=== PATIENT | male | born 1960 | race Hispanic/Latino ===

== ENCOUNTER 2019-02-05 23:41 | Emergency (ER) | payer BC ==
[~2019-02-05 23:41] MED LIST: IBUP-2482 PO; NIAC50TA4 PO; PRAV10TA39 PO; VENL25TA4 PO
[2019-02-06] MEDS ORDERED: LIDOCAINE 5% TOPICAL PATCH TP ONE (00:30)
[2019-02-06] MEDS ORDERED: KETOROLAC TROMETHAMINE 60 MG/2 ML VIAL ONE (00:30)
[2019-02-06 01:16] LABS: APPEARANCE,URINE Clear (CLEAR); BILIRUBIN,URINE Negative (NEGATIVE); COLOR,URINE Yellow (YELLOW); GLUCOSE, URINE (UA) Negative (NEGATIVE); KETONES,URINE Negative (NEGATIVE); LEUKOCYTE ESTERASE ,URINE Negative (NEGATIVE); NITRATE,URINE Negative (NEGATIVE); OCCULT BLOOD,URINE Negative (NEGATIVE); PROTEIN,URINE Negative (NEGATIVE)
== END 2019-02-06 02:18 | disposition home or self-care (01) ==
LOC: EDH 23:41
DX: M54.5 Low back pain (principal); M62.838 Other muscle spasm; F41.9 Anxiety disorder, unspecified; Z98.890 Other specified postprocedural states
CPT/HCPCS: 72100; 81003; 96372; 99284; J1885

== ENCOUNTER 2023-03-22 05:06 | Emergency (ER) | payer BC ==
[~2023-03-22] VITALS: Ht 188 cm; Wt 138.8 kg
[~2023-03-22 05:06] MED LIST changes: -VENL25TA4 PO; +VENL25TA46 PO
[2023-03-22] MEDS ORDERED: MORPHINE 2 MG SYG IVP ONE (05:30)
[2023-03-22] MEDS ORDERED: ONDANSETRON 4MG INJ IVP ONE (05:30)
[2023-03-22] MEDS ORDERED: 0.9%NACL 1000ML 2,000 ML IV ONE (05:30)
[2023-03-22] MEDS ORDERED: KETOROLAC 15MG/ML VIAL (15MG/ML) IV ONE (05:30)
[2023-03-22 05:36] LABS: BASOPHILS # (AUTO) 0.02 K/uL (0.00-0.20); BASOPHILS % (AUTO) 0.3 % (0.0-5.0); EOSINOPHILS # (AUTO) 0.07 K/uL (0.00-0.70); EOSINOPHILS % (AUTO) 0.9 % (0.0-8.0); HEMATOCRIT 38.3 % (42-54); IMMATURE GRANULOCYTE ABSOLUTE 0.03 K/uL (0-1); LYMPHOCYTES # (AUTO) 0.5 K/uL (1.0-4.8); LYMPHOCYTES % (AUTO) 5.9 % (21.0-51.0); MEAN CORPUSCULAR HEMOGLOBIN 32.2 pg (27.0-33.0); MEAN CORPUSCULAR HGB CONC 32.4 g/dL (32.0-36.0); MEAN CORPUSCULAR VOLUME 99.5 fL (79-99); MONOCYTES # (AUTO) 1.2 K/uL (0.1-1.0); MONOCYTES % (AUTO) 15.8 % (3.0-13.0); NEUTROPHILS # (AUTO) 5.9 K/uL (1.8-7.7); NEUTROPHILS % (AUTO) 76.7 % (40.0-77.0); PLATELET COUNT (AUTO) 278 K/uL (130-400); RED BLOOD CELL COUNT(AUTO) 3.85 MIL/uL (4.50-6.20); RED CELL DISTRIBUTION WIDTH 12.2 % (11.0-15.5); WHITE BLOOD COUNT (AUTO) 7.7 K/uL (4.8-10.8)
[2023-03-22] MEDS ORDERED: MORPHINE 2 MG SYG ONE (05:37)
[2023-03-22] MEDS ORDERED: KETOROLAC 15MG/ML VIAL (15MG/ML) ONE (05:37)
[2023-03-22] MEDS ORDERED: ONDANSETRON 4MG INJ ONE (05:37)
[2023-03-22 05:45] LABS: APPEARANCE,URINE CLEAR (CLEAR); BILIRUBIN,URINE NEGATIVE (NEGATIVE); COLOR,URINE LIGHT-YELLOW (YELLOW); GLUCOSE, URINE (UA) 30 mg/dL (NEGATIVE); KETONES,URINE NEGATIVE (NEGATIVE); LEUKOCYTE ESTERASE ,URINE NEGATIVE Leu/uL (NEGATIVE); NITRATE,URINE NEGATIVE (NEGATIVE); OCCULT BLOOD,URINE MODERATE (NEGATIVE); PH,URINE 5.5 (5.0-8.0); PROTEIN,URINE NEGATIVE (NEGATIVE); UROBILINOGEN,URINE 3 mg/dL (0.2-1.0)
[2023-03-22 05:50] LABS: ALBUMIN 2.9 g/dL (3.5-5.0); BILIRUBIN,TOTAL 0.3 mg/dL (0.2-1.0); CREATININE 0.9 mg/dL (0.5-1.5); POTASSIUM 3.6 mmol/L (3.5-5.1); TOTAL PROTEIN, SERUM 7.7 g/dL (6.0-8.3)
[2023-03-22 05:55] LABS: ADD UA MICROSCOPIC YES
[2023-03-22 05:56] LABS: MUCUS,URINE FEW LPF (None Seen); SQUAMOUS EPITHELIAL CELL,UR RARE /HPF (0-2); WBC,URINE 0-1 /HPF (0-1)
[2023-03-22 08:16] VITALS: BP 137/77; PULSE 71; RESP 18; O2SAT 96
[2023-03-22] MEDS ORDERED: NAPR-1192 PO (08:34)
== END 2023-03-22 08:39 | disposition home or self-care (01) ==
LOC: EDH 05:06
DX: R59.0 Localized enlarged lymph nodes (principal); E78.00 Pure hypercholesterolemia, unspecified; Z85.46 Personal history of malignant neoplasm of prostate; Z90.79 Acquired absence of other genital organ(s)
CPT/HCPCS: 99284; 74176; 96374; 96375; 96361; 80053; 83690; 85025; 81001; 36415; J2270; J2405; J1885

== ENCOUNTER 2023-03-24 01:43 | Emergency (ER) | payer BC ==
[~2023-03-24] VITALS: Ht 188 cm; Wt 139.3 kg
[~2023-03-24 01:43] MED LIST changes: +NAPR-1192 PO
[2023-03-24 02:21] LABS: RAPID GROUP A STREP negative (NEGATIVE)
[2023-03-24 02:26] LABS: SARS-CoV-2, RNA, NAAT NEGATIVE SARS CoV-2 (NEGATIVE)
[2023-03-24] MEDS ORDERED: METOCLOPRAMIDE 10 MG/2 ML VIAL IVP ONE (02:30)
[2023-03-24] MEDS ORDERED: DiphenhydrAMINE HCL 50 MG/ML VIAL IV ONE (02:30)
[2023-03-24] MEDS ORDERED: KETOROLAC 15MG/ML VIAL (15MG/ML) IV ONE (02:30)
[2023-03-24 02:31] LABS: INFLUENZA TYPE A Negative For Type A (NEGATIVE); INFLUENZA TYPE B Negative For Type B (NEGATIVE)
[2023-03-24] MEDS ORDERED: DEXAMETHASONE SOD PHOSPHATE 10MG/ML 1ML VIAL ONE (03:25)
[2023-03-24] MEDS ORDERED: DEXAMETHASONE SOD PHOSPHATE 4 MG/ML 1ML VIAL IV ONE (03:30)
[2023-03-24] MEDS ORDERED: DEXAMETHASONE SOD PHOSPHATE 4 MG/ML 1ML VIAL IVP ONE (03:30)
[2023-03-24] MEDS ORDERED: PRED20TA3 PO (05:10)
[2023-03-24 05:55] VITALS: BP 122/66; PULSE 88; RESP 20; O2SAT 98
== END 2023-03-24 05:58 | disposition home or self-care (01) ==
LOC: EDH 01:43
DX: R51.9 Headache, unspecified (principal); Z85.46 Personal history of malignant neoplasm of prostate; Z90.79 Acquired absence of other genital organ(s); Z20.822 Contact with and (suspected) exposure to COVID-19
CPT/HCPCS: 99284; 96374; 96375; 70450; 87635; 87880; 87804 ×2; C9803; J1200; J1100; J2765; J1885

== ENCOUNTER 2023-06-02 22:17 | Emergency (ER) | payer BC ==
[~2023-06-02] VITALS: Ht 188 cm; Wt 140.2 kg
[~2023-06-02 22:17] MED LIST changes: +PRED20TA3 PO
[2023-06-03 01:26] LABS: BASOPHILS # (AUTO) 0.05 K/uL (0.00-0.20); BASOPHILS % (AUTO) 0.9 % (0.0-5.0); EOSINOPHILS # (AUTO) 0.53 K/uL (0.00-0.70); EOSINOPHILS % (AUTO) 9.3 % (0.0-8.0); HEMATOCRIT 39.4 % (42-54); IMMATURE GRANULOCYTE ABSOLUTE 0.04 K/uL (0-1); LYMPHOCYTES # (AUTO) 0.8 K/uL (1.0-4.8); LYMPHOCYTES % (AUTO) 14.3 % (21.0-51.0); MEAN CORPUSCULAR HEMOGLOBIN 31.5 pg (27.0-33.0); MEAN CORPUSCULAR HGB CONC 32.7 g/dL (32.0-36.0); MEAN CORPUSCULAR VOLUME 96.3 fL (79-99); MONOCYTES # (AUTO) 0.9 K/uL (0.1-1.0); MONOCYTES % (AUTO) 15.6 % (3.0-13.0); NEUTROPHILS # (AUTO) 3.4 K/uL (1.8-7.7); NEUTROPHILS % (AUTO) 59.2 % (40.0-77.0); PLATELET COUNT (AUTO) 268 K/uL (130-400); RED BLOOD CELL COUNT(AUTO) 4.09 MIL/uL (4.50-6.20); RED CELL DISTRIBUTION WIDTH 14.1 % (11.0-15.5); WHITE BLOOD COUNT (AUTO) 5.7 K/uL (4.8-10.8)
[2023-06-03 01:35] LABS: CREATININE 0.9 mg/dL (0.5-1.5); POTASSIUM 3.7 mmol/L (3.5-5.1)
[2023-06-03 01:40] LABS: ALBUMIN 3.8 g/dL (3.5-5.0); BILIRUBIN,TOTAL 0.4 mg/dL (0.2-1.0); TOTAL PROTEIN, SERUM 8.3 g/dL (6.0-8.3)
[2023-06-03] MEDS ORDERED: 0.9%NACL 1000ML 1,000 ML IV ONE (02:30)
[2023-06-03 04:28] VITALS: BP 145/74; PULSE 78; RESP 18; O2SAT 99
[2023-06-03] MEDS ORDERED: SULFAMETHOX-TMP DS 800/160 TAB ONE (04:38)
[2023-06-03] MEDS ORDERED: CEFTRIAXONE 2GM VIAL ONE (04:38)
[2023-06-03] MEDS ORDERED: SULF1TAB42 PO (04:51)
[2023-06-03] MEDS ORDERED: CEPH500B PO (04:51)
[2023-06-03] MEDS ORDERED: SULFAMETHOX-TMP DS 800/160 TAB PO SCH (05:00)
[2023-06-03] MEDS ORDERED: CEFTRIAXONE 2GM VIAL IVPB ONE (05:00)
== END 2023-06-03 05:25 | disposition home or self-care (01) ==
LOC: EDH 22:17
DX: L03.116 Cellulitis of left lower limb (principal); Z79.899 Other long term (current) drug therapy; Z98.890 Other specified postprocedural states
CPT/HCPCS: 99284; 82550; 80053; 83880; 85025; 85378; 87040 ×2; 83605; 36415; 96374; 93971; J0696

== ENCOUNTER → 2024-04-11 | Outpatient (CLI) | payer BC ==
[~2024-04-11] MED LIST changes: +CEPH500B PO; +SULF1TAB42 PO; +VENL25TA33 PO; -VENL25TA46 PO
[2024-04-11 16:59] LABS: CREATININE 1.1 mg/dL (0.5-1.3); POTASSIUM 4.8 mmol/L (3.5-5.1)
== END | disposition home or self-care (01) ==
LOC: LAB 13:15
PROVIDERS: ATTEND Internal Medicine Cardiovascular Disease
DX: Z01.812 Encounter for preprocedural laboratory examination (principal); I48.91 Unspecified atrial fibrillation; R06.02 Shortness of breath
CPT/HCPCS: 36415; 80048; 83880

== ENCOUNTER 2024-05-02 07:53 | Day surgery (SDC) | payer BC ==
[2024-05-01 12:12] LABS: BASOPHILS # (AUTO) 0.03 K/uL (0.00-0.20); BASOPHILS % (AUTO) 0.7 % (0.0-5.0); EOSINOPHILS # (AUTO) 0.13 K/uL (0.00-0.70); HEMATOCRIT 44.3 % (42-54); IMMATURE GRANULOCYTE ABSOLUTE 0.02 K/uL (0-1); LYMPHOCYTES % (AUTO) 21.8 % (21.0-51.0); MEAN CORPUSCULAR HEMOGLOBIN 32.7 pg (27.0-33.0); MEAN CORPUSCULAR HGB CONC 32.5 g/dL (32.0-36.0); MEAN CORPUSCULAR VOLUME 100.7 fL (79-99); MONOCYTES # (AUTO) 0.7 K/uL (0.1-1.0); MONOCYTES % (AUTO) 15.4 % (3.0-13.0); NEUTROPHILS # (AUTO) 2.6 K/uL (1.8-7.7); NEUTROPHILS % (AUTO) 58.6 % (40.0-77.0); PLATELET COUNT (AUTO) 222 K/uL (130-400); RED CELL DISTRIBUTION WIDTH 12.1 % (11.0-15.5); WHITE BLOOD COUNT (AUTO) 4.4 K/uL (4.8-10.8)
[2024-05-01 12:24] LABS: INR 1.02 (0.85-1.15)
[2024-05-01 12:26] LABS: PARTIAL THROMBOPLASTIN TIME 28.9 SEC (26.3-35.5)
[2024-05-01 12:34] VITALS: BP 104/76; PULSE 78; RESP 18; TEMP 97
[2024-05-01 12:34] LABS: POTASSIUM 4.1 mmol/L (3.5-5.1)
[~2024-05-02] VITALS: Ht 188 cm; Wt 151.6 kg
[~2024-05-02 07:53] MED LIST changes: -CEPH500B PO; -IBUP-2482 PO; +METO25TA6 PO; -NAPR-1192 PO; -NIAC50TA4 PO; -PRAV10TA39 PO; -PRED20TA3 PO; -SULF1TAB42 PO; +VENL225T3 PO; -VENL25TA33 PO; +eliquis PO; +rosuvastatin PO
[2024-05-02] MEDS: LIDOCAINE HCL 2% VISCOUS 15 ML UDCUP PO ONE (08:00)
[2024-05-02 08:05] VITALS: BP 135/83; PULSE 89; RESP 15; TEMP 97.2
--- NOTE | 2024-05-02 10:02 | EKG ---
[facility] Test Date: 2024-05-02 Test Time: 08:54:12 Pat Name: VAMSI BUTT Department: [facility] Room: [facility] Gender: M Voip Technician: [id number] : 1960 Requested By: LILIANE AGUILAR Order Number: [id number] Reading MD: Jp Ramirez Measurements Intervals [place] Rate: 89 P: 0 DC: 0 QRS: 6 QRSD: 96 T: 11 QT: 368 QTc: 448 Interpretive Statements Atrial fibrillation Compared to ECG 11/24/2014 03:59:20 Sinus rhythm no longer present Electronically Signed On 05-02-2024 11:09:37 ALARM ADJUSTER by Jp Ramirez Please click the below link to view image of tracing.
--- NOTE | 2024-05-02 10:12 | EKG ---
[facility] Test Date: 2024-05-02 Test Time: 11:09:07 Pat Name: VAMSI BUTT Department: [facility] Room: [facility] 15 Gender: M Nutrition Coordinator: [id number] : 1960 Requested By: LILIANE AGUILAR Order Number: [id number] Reading MD: Jp Ramirez Measurements Intervals [place] Rate: 65 P: 40 UT: 184 QRS: -1 QRSD: 100 T: 30 QT: 406 QTc: 422 Interpretive Statements Sinus rhythm with premature atrial complexes Compared to ECG 05/02/2024 08:54:12 Atrial premature complex(es) now present Atrial fibrillation no longer present Electronically Signed On 05-02-2024 11:10:21 INSURANCE EXAMINER by Jp Ramirez Please click the below link to view image of tracing.
--- NOTE | 2024-05-02 10:14 | PRN ---
Procedure Note INDICATION FOR PROCEDURE: [] Atrial fibrillation Hypercoagulable state PROCEDURE: [] Conscious sedation Transesophageal echocardiogram Direct current cardioversion x1 at 200 joules synchronized electricity DATE OF PROCEDURE: May 02, 2024 WIRE FENCE ERECTOR: Rogerio Figueroa MD, F.A.C.C. PROCEDURE NOTE: [] Patient was brought to day patient and preliminary EKG confirmed atrial fibrillation still present. Patient was given a total of 6 mg of IV Versed and 150 mcg of fentanyl for conscious sedation and transesophageal echocardiogram probe was passed and images were obtained revealing patient to have no evidence of left atrial appendage thrombus or clot. It was felt synchronized direct current cardioversion was appropriate and device was set to 200 joules which was administered x1 with return of normal sinus rhythm. FINDINGS: [] Please see separate JUAN C report Successful direct current cardioversion x1 with return to normal sinus rhythm IMPRESSION: [] Paroxysmal atrial fibrillation Successful direct current cardioversion PLAN: [] Continue anticoagulation for at least 4 weeks Outpatient 14 day monitor to assess for recurrent of AFib Follow up in office in 4 weeks ROGERIO FIGUEROA MD May 02, 2024 10:13
[2024-05-02 10:15] VITALS: BP 113/66; PULSE 64; RESP 15
[2024-05-02] MEDS: 0.9%NACL 1000ML 1,000 ML IV SCH (10:22)
[2024-05-02] MEDS: MIDAZOLAM HCL 1 MG/ML 2ML VIAL IVP ONE (10:23)
[2024-05-02] MEDS: FENTanyl CITRate PF 50 MCG/1 ML 2ML VIAL IVP ONE (10:24)
[2024-05-02 10:25] VITALS: BP 109/70; PULSE 65; RESP 14; TEMP 97
[2024-05-02 10:35] VITALS: BP 107/66; PULSE 64; RESP 15
[2024-05-02 10:50] VITALS: BP 105/65; PULSE 65; RESP 15
--- NOTE | 2024-05-02 10:50 | NUR ---
PT AND FRIEND GIVEN VERBAL AND WRITTEN DISCHARGE INSTRUCTIONS. IV REMOVED SITE ASYMPTOMATIC.
--- NOTE | 2024-05-03 10:18 | HMCSR ---
APPROVED REPORT EXAM: Transesophageal echocardiogram with color flow Doppler. INDICATION ICD: I48.0 Chronic AF PROCEDURE After obtaining informed consent, patient underwent transesophageal echo in the daypatient 15. 15 mL 2% Viscous Lidocaine was given as a topical anesthetic prior to the administration of the consc ious sedation. Type of Sedation: Conscious Sedation Sedation was administered by Please refer to medication administration record. . Sedation was achieved with Please refer to medication administration record. intravenously. Transesophageal probe was inserted and advanced into esophagus without difficulty by Rogerio Figueroa MD . JUAN C was performed and images were obtained, probe was removed without complications. Prior to cardioversion, of Please refer to medication administration record. was administered. Synchronized Cardioversion attempted: Successful Synchronized Cardioversion acheived with 200 Joules after 1 attempt(s). Rhythm following Synchronized Cardioversion: Sinus Rhythm Throughout the procedure, the blood pressure, pulse oximetry, cardiac rhythm, and rate were monitored . The patient tolerated the procedure without adverse effects. Recovery from conscious sedation was une ventful and vital signs were stable. Left Ventricle The left ventricle is borderline enlarged. Regional wall motion abnormalities cannot be excluded. The re is normal left ventricular wall thickness. LVEF is 40%. Right Ventricle The right ventricle is normal size. The right ventricular systolic function is normal. Atria No left atrial appendage thrombus noted. The left atrium is moderately dilated. The right atrium is m ildly dilated. Aortic Valve The aortic valve is normal in structure and function. Trace of aortic regurgitation is present. There is no aortic valvular stenosis. Mitral Valve Mitral valve leaflets open well. Mitral regurgitation is mild to moderate with two centric jets. Ther e is no mitral valve stenosis. Tricuspid Valve The tricuspid valve is normal in structure and function. There is mild tricuspid valve regurgitation noted. Pulmonic Valve The pulmonary valve is normal in structure and function. There is trace of pulmonic valvular regurgit ation. Great Vessels The aortic root is normal in size. The ascending aorta appears normal in size.The descending aorta ap pears normal in size. Pericardium The pericardium appears normal. Conclusion There is normal left ventricular wall thickness. LVEF is 40%. No left atrial appendage thrombus noted. The ascending aorta appears normal in size.The descending aorta appears normal in size.
== END 2024-05-02 11:05 | disposition home or self-care (01) ==
LOC: DAH 07:53 → EDSTATUS 05-03 11:00
PROVIDERS: ATTEND Internal Medicine Cardiovascular Disease
DX: I48.0 Paroxysmal atrial fibrillation (principal); I48.20 Chronic atrial fibrillation, unspecified; I08.1 Rheumatic disorders of both mitral and tricuspid valves; E78.5 Hyperlipidemia, unspecified; I49.1 Atrial premature depolarization; F41.9 Anxiety disorder, unspecified; R53.83 Other fatigue; R06.02 Shortness of breath; E66.01 Morbid (severe) obesity due to excess calories; Z68.41 Body mass index [BMI] 40.0-44.9, adult; Z79.01 Long term (current) use of anticoagulants; Z98.890 Other specified postprocedural states; Z79.899 Other long term (current) drug therapy
CPT/HCPCS: 80048; 85025; 85610; 85730; 36415; 92960; 93325; 93312; 93005 ×2; J3010; J7030; J2250; A4615; A4215; A4223 ×3; A4657; A7002; A4222; A4221; A4663; A4216; A4606; 99152; G0500

== ENCOUNTER → 2024-06-13 | Outpatient (CLI) | payer BC ==
[~2024-06-13] MED LIST changes: +AMIO200T68 PO; +APIX5TAB PO; +IOHEXOL-350 75 ML VIAL IV ONE; +ROSU20TA98 PO; -eliquis PO; -rosuvastatin PO
--- NOTE | 2024-06-13 12:09 | HMCIMG ---
CT CARDIAC ANGIO W/CONT. CCTA REASON: ISCHEMIC CARDIOMYOPATHY COMPARISON: None TECHNIQUE: Images are obtained through the heart in the axial plane before and during bolus IV contrast infusion, 100 cc Omnipaque 350. 2-D and 3-D multiplanar reconstruction images were then performed. The injection had to be repeated once due to motion artifact on the first sequence, total contrast volume was 200 cc. FINDINGS: This dictation is for the noncardiac findings only. Cardiac and coronary artery findings are reported separately. Visualized portions of the lungs are clear. There is normal-appearing pulmonary interstitium. There is no hilar or mediastinal lymphadenopathy. Chest wall structures appear unremarkable. IMPRESSION: 1. Unremarkable noncardiac portions of CT cardiac angiography.
--- NOTE | 2024-06-13 17:52 | CARDIOLOGY ---
RAD REPORT: [facility] CT ANGIO RADIOLOGY REPORT: CORONARY CT ANGIOGRAPHY DATE: Jun 13, 2024 QUALITY: Excellent CLINICAL HISTORY AND INDICATION: [ ischemic CM ] TECHNIQUE: After obtaining a preliminary remelt sugar boiler image, contrast imaging performed on an Aquillon [id number] scanner. A dedicated, limited window, coronary imaging protocol was used, with single breath-hold, retrospective ECG gating, and automated arrhythmia rejection. 100 cc of low osmolar contrast agent: Omnipaque 350 was delivered via a 18-gauge IV catheter in the right antecubital fossa, using a power injector and followed by 60 cc of normal saline bolus as a chaser. Collimated images were reformatted at 0.5 mm intervals, and sent to an offline independent workstation for interpretation, using 3D anatomic reconstructions: Curved multiplanar reconstructions, maximum intensity projections, and multiplanar imaging. No metoprolol was administered prior to scanning due to low baseline heart rate. No SL nitroglycerin was given. CORONARY ARTERY DESCRIPTIONS: The coronary arteries arise in normal position. Left main coronary artery: Normal caliber vessel that bifurcates into the LAD and LCx. No stenosis. Left anterior descending coronary artery: Normal caliber vessel and gives rise to diagonal and septal branches. No stenosis. Left circumflex coronary artery: Normal caliber, nondominant and gives rise to a large OM branch. No stenosis. Right coronary artery: Large, dominant vessel giving rise to the PL and PDA branches. No stenosis. CAD-RADs: 0, absence of CAD. Thoracic Aorta: Normal diameter. Birgit Becerra MD Cardiovascular Disease [facility] BIRGIT BECERRA MD Jun 13, 2024 17:52
== END | disposition home or self-care (01) ==
LOC: RAH 08:31
PROVIDERS: ATTEND Internal Medicine Cardiovascular Disease
DX: I25.5 Ischemic cardiomyopathy (principal); I48.0 Paroxysmal atrial fibrillation
CPT/HCPCS: 75574; Q9967

== ENCOUNTER → 2024-08-09 | Outpatient (CLI) | payer BC ==
[~2024-08-09] MED LIST changes: -IOHEXOL-350 75 ML VIAL IV ONE
--- NOTE | 2024-08-14 16:57 | HMCSR ---
APPROVED REPORT EXAM: Two-dimensional and M-mode echocardiogram with Doppler and color Doppler. INDICATION ICD: I48.9 Unspecified Atrial fibrillation I42.0 Dilated Cardiomyopathy 2D Dimensions RVDd4.6 cmLVEF(%)24.8 (>50%)LVED Vol(simp.)189.0 mL IVSd1.2 (0.7-1.1cm)FS(%)12 %LVES Vol(simp.)133.0 mL LVDd6.2 (3.8-5.6cm)Ao Root(2D)4.0 (2.0-3.7cm)LVEF(%, simp.)30 % PWd1.0 (0.7-1.1cm)LVOT diam2.6 (1.8-2.4cm)LA ESV INDEX (BP)35.76 mL/m2 LVDs5.5 (2.5-4.0cm)IVC diam1.5 cm Aortic Valve AoV Vmax1.1 m/Osiel Peak GR4.5 mmHgLVOT Vmax0.5 m/s AoV VTI0.2 mAo Mean GR3.0 mmHgLVOT VTI0.10 m DORYS (VMAX)2.8 cm2Al P1/2T761 msAVA (VTI) 2.8 cm2 Mitral Valve MV E Vmax65.3 cm/s MR Max PG67 mmHg Pulmonary Valve PV Vmax0.7 m/sPV VTI0.13 mPV Mean GR1 mmHg PV Peak GR2.2 mmHgPI End Yanira. Enoc 1.2 cm/s Tricuspid Valve TR Vmax2.2 m/sRAP (EST) 3 gfDsBCQS17.6 mmHg TR Peak GR18.6 mmHg Left Ventricle The left ventricle is moderately dilated. There is mild left ventricular hypertrophy. LVEF is 25-30%. The LV diastolic function was unable to be assessed due to atrial arrhythmia. Right Ventricle The right ventricle is moderately dilated. Right ventricular systolic function is moderately reduced. Atria The left atrium is mildly dilated. The right atrium is mildly dilated. Aortic Valve Aortic valve is trileaflet. Aortic valve leaflets are sclerotic but open well. Mild to moderate aorti c regurgitation. There is no aortic valvular stenosis. Mitral Valve Mitral valve leaflets are mildly sclerotic but open well. Mitral regurgitation is mild to moderate. T here is no mitral valve stenosis. Tricuspid Valve The tricuspid valve leaflets appear normal. There is trace to mild tricuspid regurgitation. Pulmonic Valve Pulmonic valve is not well visualized. There is mild valvular regurgitation. Great Vessels Aortic root is mildly dilated, 4 cm. The IVC is normal in size and collapses >50% with inspiration. Pericardium No pericardial effusion. Conclusion The left ventricle is moderately dilated. There is mild left ventricular hypertrophy. LVEF is 25-30%. The LV diastolic function was unable to be assessed due to atrial arrhythmia. The right ventricle is moderately dilated. Right ventricular systolic function is moderately reduced. The left atrium is mildly dilated. The right atrium is mildly dilated. Mild to moderate aortic regurgitation. Mitral regurgitation is mild to moderate. There is trace to mild tricuspid regurgitation. Aortic root is mildly dilated, 4 cm. No pericardial effusion.
== END | disposition home or self-care (01) ==
LOC: SHCH 11:14
PROVIDERS: ATTEND Internal Medicine Cardiovascular Disease
DX: I08.8 Other rheumatic multiple valve diseases (principal); I42.0 Dilated cardiomyopathy; I48.19 Other persistent atrial fibrillation
CPT/HCPCS: 93306

== ENCOUNTER 2024-09-05 07:19 | Day surgery (SDC) | payer BC ==
[2024-09-03 11:11] VITALS: BP 140/86; PULSE 80; RESP 18; TEMP 97.6
[2024-09-03 11:16] LABS: BASOPHILS # (AUTO) 0.02 K/uL (0.00-0.20); BASOPHILS % (AUTO) 0.4 % (0.0-5.0); EOSINOPHILS # (AUTO) 0.04 K/uL (0.00-0.70); EOSINOPHILS % (AUTO) 0.8 % (0.0-8.0); HEMATOCRIT 45.1 % (42-54); IMMATURE GRANULOCYTE ABSOLUTE 0.01 K/uL (0-1); LYMPHOCYTES % (AUTO) 19.2 % (21.0-51.0); MEAN CORPUSCULAR HEMOGLOBIN 33.2 pg (27.0-33.0); MEAN CORPUSCULAR HGB CONC 32.8 g/dL (32.0-36.0); MEAN CORPUSCULAR VOLUME 101.1 fL (79-99); MONOCYTES # (AUTO) 0.8 K/uL (0.1-1.0); MONOCYTES % (AUTO) 15.2 % (3.0-13.0); NEUTROPHILS # (AUTO) 3.2 K/uL (1.8-7.7); NEUTROPHILS % (AUTO) 64.2 % (40.0-77.0); PLATELET COUNT (AUTO) 215 K/uL (130-400); RED BLOOD CELL COUNT(AUTO) 4.46 MIL/uL (4.50-6.20); RED CELL DISTRIBUTION WIDTH 12.2 % (11.0-15.5)
[2024-09-03 11:26] LABS: CREATININE 1.3 mg/dL (0.5-1.3); POTASSIUM 4.9 mmol/L (3.5-5.1)
[2024-09-05] VITALS (8 sets, daily range): BP systolic 104–142; BP diastolic 57–80; PULSE 56–69; RESP 14–18; TEMP 97–97.2
[~2024-09-05] VITALS: Ht 188 cm; Wt 151.0 kg
[~2024-09-05 07:19] MED LIST changes: +METO-391 PO; -METO25TA6 PO; +SACU1TAB PO
--- NOTE | 2024-09-05 08:37 | EKG ---
[facility] Test Date: 2024-09-05 Test Time: 07:29:47 Pat Name: VAMSI BUTT Department: [facility] Room: [facility] 13 Gender: M Finishing Room Supervisor: [id number] : 1960 Requested By: MELLY FITZPATRICK Order Number: [id number] Reading MD: Jp Ramirez Measurements Intervals [place] Rate: 92 P: 0 FL: 0 QRS: -1 QRSD: 110 T: -5 QT: 388 QTc: 480 Interpretive Statements Atrial fibrillation Inferior infarct, age indeterminate Compared to ECG 06/07/2024 11:09:53 Myocardial infarct finding now present Sinus bradycardia no longer present Electronically Signed On 09-05-2024 14:04:01 CDT by Jp Ramirez Please click the below link to view image of tracing.
[2024-09-05] MEDS: 0.9%NACL 1000ML 1,000 ML IV SCH (08:58)
[2024-09-05] MEDS ORDERED: proPOFol 10 MG/ML 20ML VIAL IV ONE (09:56)
--- NOTE | 2024-09-05 10:16 | NUR ---
PT SYNCHRONIZE CARDIOVERTED BY DR. FITZPATRICK 200 JOULES PT TOLERATED WELL NAD VSS
--- NOTE | 2024-09-05 10:19 | NUR ---
PT AWAKE SPEAKING WITH STAFF AND DR. FITZPATRICK. JOSLYN LONGOS
--- NOTE | 2024-09-05 13:51 | EKG ---
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
--- NOTE | 2024-09-06 11:26 | PRN ---
Procedure Note Date of procedure: 09/05/24 Diagnosis: Persistent atrial fibrillation Procedure: Cardioversion Physician: Dom Fitzpatrick MD The patient was brought to the day patient area in a fasting state. Anesthesia was provided by the anesthesia service. Cardioversion was performed with a synchronized shock at 200 joules resulting in sinus rhythm. The patient tolerated the procedure well. Final diagnosis: Persistent atrial fibrillation, status post successful cardiove rsion Disposition: The patient will be discharged later today and will follow up with me in the office in approximately two weeks. DOM FITZPATRICK MD Sep 06, 2024 11:26
== END 2024-09-05 11:30 | disposition home or self-care (01) ==
LOC: DAH 07:19
PROVIDERS: ATTEND Internal Medicine Cardiovascular Disease
DX: I48.19 Other persistent atrial fibrillation (principal); F41.9 Anxiety disorder, unspecified; E66.9 Obesity, unspecified; E78.5 Hyperlipidemia, unspecified; I42.0 Dilated cardiomyopathy; Z68.41 Body mass index [BMI] 40.0-44.9, adult; Z79.01 Long term (current) use of anticoagulants; Z79.899 Other long term (current) drug therapy
CPT/HCPCS: 80048; 85025; 36415; 92960; 93005 ×2; J7030; J2704; A4620; A4215; A4222; A4221; A4663; A4216; A4606; A4223 ×3; J3490

== ENCOUNTER → 2024-09-11 | Outpatient (CLI) | payer BC ==
[2024-09-11 16:44] LABS: CREATININE 1.7 mg/dL (0.5-1.3); POTASSIUM 4.6 mmol/L (3.5-5.1)
== END | disposition home or self-care (01) ==
LOC: LAB 14:24
PROVIDERS: ATTEND Physician Assistant
DX: I48.19 Other persistent atrial fibrillation (principal); I42.0 Dilated cardiomyopathy
CPT/HCPCS: 36415; 80048; 83880

== ENCOUNTER → 2024-09-14 | Outpatient (CLI) | payer BC ==
[2024-09-14 12:16] LABS: CREATININE 1.1 mg/dL (0.5-1.3); POTASSIUM 4.9 mmol/L (3.5-5.1)
== END | disposition home or self-care (01) ==
LOC: LAB 09:56
PROVIDERS: ATTEND Internal Medicine Cardiovascular Disease
DX: N17.9 Acute kidney failure, unspecified (principal)
CPT/HCPCS: 36415; 80048

== ENCOUNTER 2025-03-21 05:56 | Day surgery (SDC) | payer BC ==
[2025-03-18 09:52] LABS: IMMATURE GRANULOCYTE ABSOLUTE 0.02 K/uL (0-1); NUCLEATED RED BLOOD CELLS 0.0 % (0.0-0.19); PLATELET COUNT (AUTO) 227 K/uL (130-400); RED BLOOD CELL COUNT(AUTO) 4.51 MIL/uL (4.50-6.20); RED CELL DISTRIBUTION WIDTH 12.1 % (11.0-15.5); WHITE BLOOD COUNT (AUTO) 5.7 K/uL (4.8-10.8)
[2025-03-18 10:00] LABS: INR 1.07 (0.85-1.15)
[2025-03-18 10:05] VITALS: BP 121/78; PULSE 72; RESP 15; TEMP 97
--- NOTE | 2025-03-18 10:09 | EKG ---
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
[2025-03-18 10:23] LABS: CREATININE 1.4 mg/dL (0.5-1.3); GLOMERULAR FILTR. RATE CALC 57.0 mL/min (>90); GLUCOSE,RANDOM 102.0 mg/dL (70-105); SODIUM SERUM 141.0 mmol/L (136-145); UREA NITROGEN, BLOOD 27.0 mg/dL (7-18)
[2025-03-21] VITALS (17 sets, daily range): BP systolic 100–122; BP diastolic 52–70; PULSE 57–70; RESP 15–18; TEMP 97.1–98.1
[~2025-03-21] VITALS: Ht 188 cm; Wt 146.9 kg
[~2025-03-21 05:56] MED LIST changes: -AMIO200T68 PO; +AMIO200T73 PO; -SACU1TAB PO
[2025-03-21] MEDS ORDERED: 0.9%NACL 1000ML 1,000 ML IV ONE (06:15)
[2025-03-21] MEDS ORDERED: MIDAZOLAM HCL 1 MG/ML 2ML VIAL ONE (06:54)
[2025-03-21] MEDS ORDERED: LIDOCAINE HCL 400MG/20ML VIAL ONE (07:17)
[2025-03-21] MEDS ORDERED: HEParin-NS 1,000 UNIT/500 ML 1,000 ML IV ONE (07:17)
[2025-03-21] MEDS ORDERED: SODIUM BICARB 50MEQ 50ML VIAL 50 ML ONE (07:17)
[2025-03-21] MEDS ORDERED: SUGAMMADEX SODIUM 200 MG/2 ML VIAL IV ONE (11:06)
[2025-03-21] MEDS ORDERED: PANT40TA55 PO (11:36)
[2025-03-21] MEDS ORDERED: SUCR1TAB2 PO (11:36)
[2025-03-21] MEDS ORDERED: SUCRALFATE 1 GM/10 ML PO ONE (13:00)
--- NOTE | 2025-03-21 14:05 | NUR ---
PT AND SISTER GIVEN VERBAL AND WRITTEN DISCHARGE INSTRUCTIONS IV REMOVED SITE ASYMPTOMATIC. RIGHT GROIN SOFT ASYMPTOMATIC. PT TAKEN OUT VIA WHEELCHAIR SISTER DRIVING.
== END 2025-03-21 14:12 | disposition home or self-care (01) ==
LOC: DAH 05:56
PROVIDERS: ATTEND Internal Medicine Cardiovascular Disease
DX: I48.19 Other persistent atrial fibrillation (principal); I42.0 Dilated cardiomyopathy; E78.5 Hyperlipidemia, unspecified; F41.9 Anxiety disorder, unspecified; Z79.890 Hormone replacement therapy; Z79.899 Other long term (current) drug therapy
CPT/HCPCS: 80048 ×2; 85025 ×2; 85610; 85730; 36415 ×2; 93005; 93656; 93657 ×2; 85347 ×5; 99283; C1894 ×3; C1732 ×3; A4649 ×2; C1760 ×3; C1766; J3010 ×3; J3490 ×4; J7030; J2720; J1644 ×5; J2250; J2704; J2405 ×2; J2371; A4215; A4222; A4221; A4663; A4216; A4606; A4223 ×3; 99282

== ENCOUNTER 2025-03-21 14:57 | Emergency (ER) | payer BC ==
[~2025-03-21] VITALS: Ht 188 cm; Wt 140.6 kg
[~2025-03-21 14:57] MED LIST changes: +PANT40TA55 PO; +SUCR1TAB2 PO
--- NOTE | 2025-03-21 15:08 | ERN ---
ED Note History of Present Illness Stated Complaint: OTHER Chief Complaint: Other Problems Time Seen by MD: 15:04 Dictation: PATIENT IS A 64-YEAR-OLD MALE COMING IN WITH BLEEDING FROM HIS RIGHT INGUINAL HEART CATHETERIZATION SITE. HE STATES HE HAD A ABLATION TODAY BY FOR ATRIAL FIBRILLATION. 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 HE SAID WHEN HE GOT OUT OF THE TRUCK HE FELT BLOOD COME DOWN HIS LEG. NO BLEEDING CURRENTLY AT THIS TIME. Allergies: Coded Allergies: No Known Allergies (Verified Allergy, Unknown, 10/01/14) No Known Drug Allergies (Unverified Allergy, Unknown, 02/06/19) Home Meds Active Scripts Sucralfate (Sucralfate) 1 Gram Tablet, 1 TAB PO QID, #60 TAB 0 Refills MUST DISSOLVE WATER DO NOT CRUSH Prov:MELLY FITZPATRICK MD 03/21/25 Pantoprazole Sodium (Protonix) 40 Mg Ectab, 1 TAB PO DAILY, #15 TAB 0 Refills Prov:MELLY FITZPATRICK MD 03/21/25 Reported Medications Metoprolol Succinate (Metoprolol Succinate) 50 Mg Tab.er.24h, 50 MG PO HS, TAB 09/03/24 Rosuvastatin Calcium (Rosuvastatin Calcium) 20 Mg Tablet, 20 MG PO HS, TAB 06/05/24 Venlafaxine HCl (Venlafaxine HCl ER) 225 Mg Tab.er.24, 225 MG PO HS 06/05/24 Apixaban (Eliquis) 5 Mg Tablet, 5 MG PO BID, TAB 06/05/24 Discontinued Reported Medications Amiodarone HCl (Amiodarone HCl) 200 Mg Tablet, 200 MG PO PM, TAB 06/05/24 Sacubitril/Valsartan (Entresto 24 mg-26 mg Tablet) 24 Mg-26 Mg Tablet, 1 EACH PO BID, TAB 09/03/24 Past Medical History Past Medical History: A-Fib, Cancer, Other Additional Past Medical Hx: HX OF PROSTATE CA Surgical History: Other Surgical History Other: PROSTATE SX; LEFT SHOULDER SX, BILAT KNEE SX Family History: HTN Social History: Negative, Lives with family RN Note Reviewed/Agreed w/PFSH: Yes Review of System Dictation CONSTITUTIONAL: NEGATIVE EXCEPT FOR HPI HEAD/FACE: NEGATIVE EXCEPT FOR HPI EENT: NEGATIVE EXCEPT FOR HPI RESPIRATORY: NEGATIVE EXCEPT FOR HPI GASTROINTESTINAL/ABDOMINAL: NEGATIVE EXCEPT FOR HPI GENITOURINARY: NEGATIVE EXCEPT FOR HPI BLEEDING FROM RIGHT INGUINAL SITE MUSCULOSKELETAL: NEGATIVE EXCEPT FOR HPI INTEGUMENTARY: NEGATIVE EXCEPT FOR HPI NEUROLOGICAL/PSYCH: NEGATIVE EXCEPT FOR HPI HEMATOLOGIC/LYMPHATIC: NEGATIVE EXCEPT FOR HPI ALL SYSTEMS NEGATIVE, EXCEPT NOTED ABOVE. 13 POINT REVIEW OF SYSTEMS ASSESSED AND ALL NEGATIVE EXCEPT FOR ABOVE. Initial Vital Sign VS Vital Signs Date Time Temp Pulse Resp B/P (MAP) Pulse Ox O2 Delivery O2 Flow Rate FiO2 03/21/25 14:58 65 18 109/70 97 Room Air 0 03/21/25 15:15 98.6 21 Physical Exam Dictation VITAL SIGNS REVIEWED GENERAL APPEARANCE: ALERT, ORIENTED X 3, NO ACUTE DISTRESS, WELL DEVELOPED, NOURISHED. HEAD AND FACE: NON-TRAUMATIC. EYES: PERRL, PINK CONJUNCTIVAS, EYELID NO TRAUMA, ANTERIOR CHAMBER WITH ARCUS SENILIS. EARS: PINNAS INTACT AND NO SIGNS OF TRAUMA OR ERYTHEMA EAR CANALS CLEAR AND NO DISCHARGE TM NO ERYTHEMA NOSE: NO DISCHARGE, NO BLEEDING. OROPHARYNX: MOUTH NORMAL, TONGUE PINK, PHARYNX CLEAR,NO ERYTHEMA, TONSILS NO EXUDATES, NO ABSCESSES NOTED, MUCOUS MEMBRANE MOIST NECK: SUPPLE, NON-TENDER, NO THYROMEGALY, NO MASSES, NO JVD, NO BRUITS BREAST:DEFERRED CHEST:NO TENDERNESS, NO CREPITUS, NO PARADOXICAL MOVEMENT, NO RETRACTIONS LUNGS:CLEAR, WELL-VENTILATED, SYMMETRIC, NO RALES, NO WHEEZING, NO RHONCHI, NO STRIDOR, GOOD BREATH SOUNDS BILATERALLY HEART: REGULAR RATE, REGULAR RHYTHM, NO MURMUR, NO GALLOPS VASCULAR: NO PERIPHERAL EDEMA, DRESSING TO RIGHT INGUINAL AREA WITH BLOOD. NO ACTIVE BLEEDING AT THIS TIME. ABDOMEN: SOFT, POSITIVE BOWEL SOUNDS, NONDISTENDED, NO GUARDING, NONTENDER, NO REBOUND, NO MASSES NO HEPATOMEGALY, NO SPLENOMEGALY, NO FENTON'S SIGN, NO HERNIAS. RECTAL: DEFERRED GENITAL: DEFERRED NEUROLOGICAL: NORMAL SPEECH, MOTOR FUNCTION INTACT, SENSORY FUNCTION INTACT MUSCULOSKELETAL: NECK NONTENDER, FULL RANGE OF MOTION, BACK NONTENDER, FULL RANGE OF MOTION, EXTREMITIES: NONTENDER, FULL RANGE OF MOTION SKIN: COLOR PINK, DRY, NO TURGOR, NO RASH, NO LACERATIONS, NO ABRASIONS, NO CONTUSIONS. LYMPHATIC: DEFERRED Results (Laboratory/Radiology) Laboratory/Radiology Laboratory Tests Test 03/21/25 15:25 White Blood Count 9.1 K/uL (4.8-10.8) Red Blood Count 3.79 MIL/uL (4.50-6.20) L Hemoglobin 12.6 g/dL (14.0-18.0) L Hematocrit 38.7 % (42-54) L Mean Corpuscular Volume 102.1 fL (79-99) H Mean Corpuscular Hemoglobin 33.2 pg (27.0-33.0) H Mean Corpuscular Hemoglobin Concent 32.6 g/dL (32.0-36.0) Red Cell Distribution Width 12.7 % (11.0-15.5) Platelet Count 178 K/uL (130-400) Mean Platelet Volume 9.9 fL (7.5-10.5) Immature Granulocyte % (Auto) 0.3 % (0-1) Neutrophils (%) (Auto) 80.9 % (40.0-77.0) H Lymphocytes (%) (Auto) 10.5 % (21.0-51.0) L Monocytes (%) (Auto) 8.0 % (3.0-13.0) Eosinophils (%) (Auto) 0.1 % (0.0-8.0) Basophils (%) (Auto) 0.2 % (0.0-5.0) Neutrophils # (Auto) 7.4 K/uL (1.8-7.7) Lymphocytes # (Auto) 1.0 K/uL (1.0-4.8) Monocytes # (Auto) 0.7 K/uL (0.1-1.0) Eosinophils # (Auto) 0.01 K/uL (0.00-0.70) Basophils # (Auto) 0.02 K/uL (0.00-0.20) Absolute Immature Granulocyte (auto 0.03 K/uL (0-1) Nucleated Red Blood Cells 0.0 % (0.0-0.19) Sodium Level 141 mmol/L (136-145) Potassium Level 4.5 mmol/L (3.5-5.1) Chloride Level 106 mmol/L (101-111) Carbon Dioxide Level 26 mmol/L (21-32) Blood Urea Nitrogen 26 mg/dL (7-18) H Creatinine 1.2 mg/dL (0.5-1.3) Glomerular Filtration Rate Calc 68 mL/min (>90) Random Glucose 108 mg/dL (70-105) H Total Calcium 7.8 mg/dL (8.5-10.1) L Labs Reviewed?: Yes ED Course ED Course Orders Procedure Category Date Status Time Pressure After CPOE 03/21/25 Transmitted Venipunc. 5 Min 15:06 Cbc With Differential LAB 03/21/25 Complete 15:06 Basic Metabolic Panel LAB 03/21/25 Complete 15:06 Acetaminophen With PHA 03/21/25 In Process Codeine (Tylenol-Code 17:00 Current Medications Medications (Trade) Dose Ordered Sig/Noel Route PRN Reason Start Time Stop Time Status Last Admin Dose Admin Acetaminophen/ Codeine Phosphate (TYLenol-coDEINE TAB) 2 tab ONCE ONCE PO 03/21/25 17:00 03/21/25 17:01 Vital Signs Date Time Temp Pulse Resp B/P (MAP) Pulse Ox O2 Delivery O2 Flow Rate FiO2 03/21/25 16:25 98.6 59 17 115/68 97 Room Air* 0 21 03/21/25 15:15 98.6 64 17 119/75 97 Room Air* 0 21 03/21/25 14:58 65 18 109/70 97 Room Air 0 1540/IN DORETHA FROM INORGANIC CHEMICAL TECHNICIAN HERE AND DRESSING WAS PLACED TO RIGHT INGUINAL SITE. NO ACTIVE BLEEDING AT THIS TIME. DISTAL NEUROVASCULAR CMS INTACT RIGHT [id number]/ 1618/NO ACTIVE BLEEDING AT THIS TIME. DISTAL NEUROVASCULAR CMS INTACT POST DRESSING PLACEMENT BY RN. NO HEMATOMA AT INSERTION SITE OF HEART CATHETERIZATION.1635/ 1635/PATIENT WANTED TO REVIEW THE LABS ONE MORE TIME. ADDITIONALLY HE STATES HE IS HAVING SOME LOW BACK PAIN AFTER LAYING ON THE TABLE SINCE 06:00 THIS MORNING ON HIS BACK. STATES HE HAS A HISTORY OF PRIOR BACK INJURIES WITH BULGING DISC IN HIS HIGHER BACK. WANTED SOMETHING FOR FRAME PRIOR TO DISCHARGED HOME. I REASSURED HIM THAT HIS LABS WERE STABLE AND THAT THERE WAS NOT ANY BLOOD LOSS TO A MOUTH TO ANY KIND OF ANEMIA. ALL QUESTIONS WERE ANSWERED. 1645/ DR FITZPATRICK HERE AND REVIEWED LABS AND EXAMINED PATIENT. HE A REASSURED PATIENT HE WAS READY TO GO HOME. PATIENT GIVEN TYLENOL WITH CODEINE PRIOR TO DISCHARGE FOR PAIN. Medical Decision Making MDM MDM: DIFFERENTIAL DIAGNOSIS: POST HEART CATHETERIZATION BLEEDING/ANEMIA/ELECTROLYTE IMBALANCE/DEHYDRATION RATIONALE: TESTS CONSIDERED AND ORDERED SECONDARY TO SHARED DECISION MAKING INCLUDE: LABS PREVIOUS OUTSIDE RECORDS REVIEWED: OLD ER VISITS. RISK OF COMPLICATION AND/OR MORBIDITY OR MORTALITY OF PATIENT MANAGEMENT: NONE MEDICATIONS-PER MEDICATION RECONCILIATION NEED FOR HOSPITALIZATION: PATIENT DOES NOT MEET CRITERIA FOR HOSPITALIZATION. NONE NEED FOR EMERGENCY MAJOR/MINOR SURGERY: NO THERE ARE NO SOCIAL CONCERNS WITH THIS PATIENT. PRESCRIPTION DRUG MANAGEMENT DISCHARGED HOME TO CONTINUE ALL OF HIS MEDICATION TREATMENTS AND INSTRUCTIONS FROM HIS HEART CATHETERIZATION THIS MORNING. PRESCRIPTIONS WILL INCLUDE SYMPTOMATIC CARE PATIENT'S PRIOR EXTERNAL MEDICAL RECORDS FROM OTHER ER VISITS WERE REVIEWED BY ME INDICATED. PRIOR TESTING AND RESULTS FROM PREVIOUS VISITS WERE REVIEWED. PRIOR TESTS WERE TAKEN INTO ACCOUNT WITH MEDICAL DECISION MAKING AND RESOURCE UTILIZATION, INDEPENDENT HISTORIAN/HISTORIANS WERE USED TO OBTAIN COMPLETE MEDICAL HISTORY. I INDEPENDENTLY INTERPRETED THE TEST THAT WERE PERFORMED, RESULTS WERE REVIEWED BY ME AND CONSIDERED FINDINGS ON RADIOLOGY IF ORDERED. MEDICAL MANAGEMENT AND EXAMINATION INTERPRETATION DISCUSSIONS WERE HAD BY ME WITH OTHER QUALIFIED HEALTHCARE PROFESSIONALS INDICATED FOR THE PATIENT'S CARE. DX & DISP Disposition: Discharge Departure Impression: Primary Impression: Postoperative hemorrhage involving circulatory system following cardiac catheterization Additional Impressions: Chronic anemia, Dehydration, Hypocalcemia Condition: Stable Additional Instructions: FOLLOW-UP WITH PRIMARY CARE PROVIDER IN 1 TO 2 DAYS. TAKE MEDICATIONS DIRECTED HERE IN THE EMERGENCY ROOM. OKAY TO CONTINUE HOME MEDICATIONS UNLESS OTHERWISE DISCUSSED DURING YOUR VISIT IN THE EMERGENCY ROOM TODAY. RETURN TO YOUR NEAREST EMERGENCY ROOM IF SYMPTOMS WORSEN OR IF THERE IS NO IMPROVEMENT. CALL 911 IF YOU NEED IMMEDIATE ASSISTANCE. TAKE TYLENOL OR MOTRIN OVER-THE-CO UNTER NEEDED AND IF NO CONTRAINDICATIONS ARE PRESENT. INCREASE ORAL HYDRATION. A WOUND CULTURE OR URINE CULTURE WAS ORDERED HERE IN THE EMERGENCY ROOM DEPARTMENT PLEASE FOLLOW-UP WITH PRIMARY CARE PROVIDER AND ADVISE THEM TO GET REPEAT PORTS FROM OUR FACILITY. IF YOU HAD ANY NAFISA WRAP/SPLINTS THAT WERE APPLIED HERE, PLEASE DO NOT REMOVE THEM UNTIL YOU SEE YOUR PRIMARY CARE OR SPECIALTY. CONTINUE ALL MEDICATIONS AND TREATMENTS FROM YOUR ABLATION THIS MORNING WITH . Referrals: JALEEL STORM (PCP) Time of Disposition: 16:20 I have reviewed the case, and I agree with, Diagnosis and Plan SONI WHEELER Mar 21, 2025 15:08
--- NOTE | 2025-03-21 15:16 | NUR ---
APPLIED D STAT TO RIGHT GROIN HELD PRESSURE X 15 MINUTES, RIGHT GROIN SOFT NON TENDER NO BLEEDING NOTED DISTAL PULSE PRESENT RLE
[2025-03-21 15:34] LABS: IMMATURE GRANULOCYTE ABSOLUTE 0.03 K/uL (0-1); NUCLEATED RED BLOOD CELLS 0.0 % (0.0-0.19); PLATELET COUNT (AUTO) 178 K/uL (130-400); RED BLOOD CELL COUNT(AUTO) 3.79 MIL/uL (4.50-6.20); RED CELL DISTRIBUTION WIDTH 12.7 % (11.0-15.5); WHITE BLOOD COUNT (AUTO) 9.1 K/uL (4.8-10.8)
[2025-03-21 15:40] LABS: CREATININE 1.2 mg/dL (0.5-1.3); GLOMERULAR FILTR. RATE CALC 68.0 mL/min (>90); GLUCOSE,RANDOM 108.0 mg/dL (70-105); SODIUM SERUM 141.0 mmol/L (136-145); UREA NITROGEN, BLOOD 26.0 mg/dL (7-18)
[2025-03-21 16:25] VITALS: BP 115/68; PULSE 59; RESP 17; TEMP 98.6; O2SAT 97
== END 2025-03-21 17:10 | disposition home or self-care (01) ==
LOC: EDH 14:57
DX: I97.610 Postprocedural hemorrhage of a circulatory system organ or structure following a cardiac catheterization (principal); D64.9 Anemia, unspecified; E86.0 Dehydration; E83.51 Hypocalcemia; I48.91 Unspecified atrial fibrillation; Z79.01 Long term (current) use of anticoagulants; Z79.899 Other long term (current) drug therapy; Y84.0 Cardiac catheterization as the cause of abnormal reaction of the patient, or of later complication, without mention of misadventure at the time of the procedure
CPT/HCPCS: 36415; 80048; 85025; 99282; 99283